=== PATIENT | male | born 1960 | race Caucasian/White ===

== ENCOUNTER 2017-04-01 19:30 | Inpatient (IN) | payer OTHER, MEDICAID ==
[2017-04-01] MEDS: DILTIAZEM 25 MG INJ IV (23:32)
[2017-04-01] MEDS: DILTIAZEM-D5W 125MG/125ML DRIP 125 ML IV (23:33)
[2017-04-01 23:48] LABS: ADD MAN DIFF? NO
[2017-04-01 23:55] LABS: BASOPHIL # 0.1 10^3/ul (0.0-0.1); BASOPHILS % 1.2 % (0.0-2.0); EOSINOPHILS # 0.4 10^3/ul (0.0-0.5); EOSINOPHILS % 4.4 % (0.0-7.0); HEMATOCRIT 41.7 % (42.0-52.0); HEMOGLOBIN 14.3 g/dl (14.0-18.0); LYMPHOCYTES # 3.2 10^3/ul (0.8-2.9); LYMPHOCYTES % 31.9 % (15.0-51.0); MEAN CORPUSCULAR HGB CONC 34.3 g/dl (32.0-37.0); MEAN CORPUSCULAR VOLUME 90.3 fl (82.0-101.0); MEAN PLATELET VOLUME 10.5 fl (7.4-10.4); MONOCYTE # 1.2 10^3/ul (0.3-0.9); MONOCYTES % 11.4 % (0.0-11.0); NEUTROPHIL # 5.1 10^3/ul (1.6-7.5); NEUTROPHILS % 50.7 % (39.0-77.0); PLATELET COUNT 235 10^3/UL (140-415); RED BLOOD COUNT 4.62 10^6/ul (4.70-6.10); RED CELL DISTRIBUTION WIDTH 13.3 % (11.5-14.5)
[2017-04-01 23:55] LABS: WHITE BLOOD COUNT 10.1 10^3/ul (4.8-10.8)
[2017-04-02 00:11] LABS: ANION GAP 18 (8-16); BLOOD UREA NITROGEN 18 mg/dl (7-20); CALCIUM 9.7 mg/dl (8.4-10.2); CARBON DIOXIDE 26 mmol/L (21-31); CHLORIDE 107 mmol/L (97-110); CREATININE 1.01 mg/dl (0.61-1.24); GLUCOSE 127 mg/dl (70-220); SODIUM 147 mmol/L (135-144)
[2017-04-02 00:24] LABS: TROPONIN-I < 0.012 ng/ml (0.00-0.12)
[2017-04-02] MEDS ORDERED: ONDANSETRON 4 MG INJ IV (01:00)
[2017-04-02] MEDS ORDERED: ACETAMINOPHEN 325 MG TAB PO ×2 (01:00→01:30)
[2017-04-02] MEDS ORDERED: ONDANSETRON 4 MG TAB PO (01:30)
[2017-04-02] MEDS ORDERED: BISACODYL (EC) 5 MG TAB PO (01:30)
[2017-04-02] MEDS ORDERED: morphine 2 MG INJ IV (01:30)
[2017-04-02] MEDS ORDERED: DOCUSATE SODIUM 100 MG CAP PO (01:30)
[2017-04-02] MEDS ORDERED: NACL 0.9% 3 ML SYG IV (01:30)
[2017-04-02] MEDS: DILTIAZEM-D5W 125MG/125ML DRIP 125 ML IV (02:37)
[2017-04-02 02:47] LABS: FREE T4 (FREE THYROXINE) 0.86 ng/dl (0.64-1.79)
[2017-04-02] MEDS: ENOXAPARIN 100 MG/ML SYG SC ×2 (02:58→11:59)
[2017-04-02 06:53] LABS: ADD MAN DIFF? NO
[2017-04-02 06:55] LABS: BASOPHIL # 0.1 10^3/ul (0.0-0.1); BASOPHILS % 1.2 % (0.0-2.0); EOSINOPHILS # 0.5 10^3/ul (0.0-0.5); EOSINOPHILS % 5.1 % (0.0-7.0); HEMATOCRIT 44.3 % (42.0-52.0); LYMPHOCYTES # 2.8 10^3/ul (0.8-2.9); LYMPHOCYTES % 30.4 % (15.0-51.0); MEAN CORPUSCULAR HEMOGLOBIN 30.9 pg (29.0-33.0); MEAN CORPUSCULAR HGB CONC 33.9 g/dl (32.0-37.0); MEAN CORPUSCULAR VOLUME 91.2 fl (82.0-101.0); MEAN PLATELET VOLUME 10.7 fl (7.4-10.4); MONOCYTES % 10.8 % (0.0-11.0); NEUTROPHIL # 4.9 10^3/ul (1.6-7.5); NEUTROPHILS % 52.1 % (39.0-77.0); PLATELET COUNT 246 10^3/UL (140-415); RED BLOOD COUNT 4.86 10^6/ul (4.70-6.10); RED CELL DISTRIBUTION WIDTH 13.4 % (11.5-14.5)
[2017-04-02 06:55] LABS: WHITE BLOOD COUNT 9.3 10^3/ul (4.8-10.8)
[2017-04-02 07:24] LABS: CK INDEX 3.6; CREATINE KINASE 101 IU/L (23-200)
[2017-04-02 07:26] LABS: ALANINE AMINOTRANSFERASE 43 IU/L (13-69); ALBUMIN 3.9 g/dl (3.3-4.9); ALBUMIN/GLOBULIN RATIO 1.39; ALKALINE PHOSPHATASE 60 IU/L (42-121); ANION GAP 18 (8-16); ASPARTATE AMINO TRANSFERASE 29 IU/L (15-46); BILIRUBIN,INDIRECT 0.4 mg/dl (0-1.1); BILIRUBIN,TOTAL 0.4 mg/dl (0.2-1.3); BLOOD UREA NITROGEN 15 mg/dl (7-20); CALCIUM 9.5 mg/dl (8.4-10.2); CARBON DIOXIDE 24 mmol/L (21-31); CHLORIDE 108 mmol/L (97-110); CHOL/HDL RATIO 2.4 RATIO; CHOLESTEROL 127 mg/dl (100-200); CREATININE 0.97 mg/dl (0.61-1.24); GLUCOSE 145 mg/dl (70-220); HDL CHOLESTEROL 52 mg/dl (28-71); LDL CHOLESTEROL,CALCULATED 58 mg/dl; MAGNESIUM 1.6 mg/dl (1.7-2.5); POTASSIUM 4.1 mmol/L (3.5-5.1); SODIUM 146 mmol/L (135-144); TOTAL PROTEIN 6.7 g/dl (6.1-8.1); TRIGLYCERIDES 83 mg/dl (0-149)
[2017-04-02 07:27] LABS: CK-MB 3.64 ng/ml (0.0-2.4); TROPONIN-I < 0.012 ng/ml (0.00-0.12)
[2017-04-02 08:01] LABS: HEMOGLOBIN A1C 5.7 % (0-5.9)
[2017-04-02] MEDS ORDERED: EMTRICITABINE/TENOFOV ALAFENAM 1 EACH TABLET PO ×2 (09:00→10:42)
[2017-04-02] MEDS: DOLUTEGRAVIR SODIUM 50 MG TABLET PO (09:33)
[2017-04-02] MEDS: BACLOFEN 10 MG TAB PO (09:33)
[2017-04-02] MEDS: ASPIRIN (EC) 325 MG TAB PO (09:33)
[2017-04-02] MEDS: EMTRICITABINE/TENOFOV ALAFENAM 1 EACH TABLET PO (11:56)
[2017-04-02] MEDS: MAGNESIUM SULFATE 2 GM/50 ML 50 ML IVPB (14:57)
[2017-04-02] MEDS ORDERED: ATORVASTATIN 80 MG TAB PO (21:00)
[2017-04-03 11:37] LABS: LYMPHOCYTE - % CD4 (HELPER) 36 % (30-61); LYMPHOCYTE - %CD8 (SUPPRESSOR) 23 % (12-42); LYMPHOCYTE - ABSOLUTE 2915 cells/uL (850-3900); LYMPHOCYTE - ABSOLUTE CD4 1040 cells/uL (490-1740); LYMPHOCYTE - ABSOLUTE CD8 685 cells/uL (180-1170); LYMPHOCYTE - CD4/CD8 RATIO 1.52 (0.86-5.00)
== END 2017-04-02 16:51 | disposition home or self-care (01) | DRG 308 ==
LOC: TEL 04-02 00:36 → E/R 19:30
DX: I48.91 Unspecified atrial fibrillation (principal); B20 Human immunodeficiency virus [HIV] disease; I10 Essential (primary) hypertension; E78.5 Hyperlipidemia, unspecified
CPT/HCPCS: 36415; 71010; 80048; 80053; 80061; 82550; 82553; 83036; 83735; 84439; 84443; 84484; 85025; 86360; 87536; 93005; 93306; 96374; 96375; 99291-25

== ENCOUNTER 2017-06-06 16:51 | Emergency (ER) | payer OTHER, MEDICAID ==
[2017-06-06] MEDS ORDERED: ADENOSINE 0 ML (17:10)
[2017-06-06] MEDS: DILTIAZEM 25 MG INJ IV (17:20)
[2017-06-06] MEDS: SOD CHLORIDE 0.9% 500 ML IV (17:21)
[2017-06-06] MEDS: MAGNESIUM SULFATE 2 GM/50 ML 50 ML IVPB (17:23)
[2017-06-06 17:39] LABS: ADD MAN DIFF? NO
[2017-06-06 17:42] LABS: BASOPHIL # 0.1 10^3/ul (0.0-0.1); BASOPHILS % 0.7 % (0.0-2.0); EOSINOPHILS # 0.3 10^3/ul (0.0-0.5); EOSINOPHILS % 2.4 % (0.0-7.0); HEMATOCRIT 39.5 % (42.0-52.0); HEMOGLOBIN 13.3 g/dl (14.0-18.0); LYMPHOCYTES # 3.2 10^3/ul (0.8-2.9); LYMPHOCYTES % 30.5 % (15.0-51.0); MEAN CORPUSCULAR HEMOGLOBIN 30.9 pg (29.0-33.0); MEAN CORPUSCULAR HGB CONC 33.7 g/dl (32.0-37.0); MEAN CORPUSCULAR VOLUME 91.9 fl (82.0-101.0); MEAN PLATELET VOLUME 9.9 fl (7.4-10.4); MONOCYTE # 1.3 10^3/ul (0.3-0.9); MONOCYTES % 12.6 % (0.0-11.0); NEUTROPHIL # 5.7 10^3/ul (1.6-7.5); NEUTROPHILS % 53.5 % (39.0-77.0); PLATELET COUNT 211 10^3/UL (140-415); RED CELL DISTRIBUTION WIDTH 13.1 % (11.5-14.5)
[2017-06-06 17:42] LABS: WHITE BLOOD COUNT 10.6 10^3/ul (4.8-10.8)
[2017-06-06] MEDS: ASPIRIN 81 MG TAB PO (17:52)
[2017-06-06] MEDS: DILTIAZEM-D5W 125MG/125ML DRIP 125 ML IV (17:57)
[2017-06-06 18:03] LABS: INR 1.01; PROTIME 13.4 Sec (11.9-14.9)
[2017-06-06 18:04] LABS: PARTIAL THROMBOPLASTIN TIME 29.1 Sec (25.0-35.0)
[2017-06-06 18:06] LABS: ANION GAP 20 (8-16); BLOOD UREA NITROGEN 22 mg/dl (7-20); CALCIUM 9.9 mg/dl (8.4-10.2); CARBON DIOXIDE 25 mmol/L (21-31); CHLORIDE 102 mmol/L (97-110); CREATININE 1.38 mg/dl (0.61-1.24); GLUCOSE 103 mg/dl (70-220); POTASSIUM 3.4 mmol/L (3.5-5.1); SODIUM 144 mmol/L (135-144)
[2017-06-06 18:17] LABS: TROPONIN-I < 0.012 ng/ml (0.00-0.12)
== END 2017-06-06 19:10 | disposition home or self-care (01) ==
LOC: E/R 16:51
DX: I48.91 Unspecified atrial fibrillation (principal); N28.9 Disorder of kidney and ureter, unspecified; I10 Essential (primary) hypertension; Z79.82 Long term (current) use of aspirin
CPT/HCPCS: 36415; 71045; 80048; 84484; 85025; 85610; 85730; 93005; 96374; 96375; 99285-25

== ENCOUNTER 2018-02-04 14:50 | Emergency (ER) | payer OTHER ==
[2018-02-04] MEDS: ONDANSETRON 4 MG INJ IV (16:27)
[2018-02-04] MEDS: HYDROmorphONE 1 MG/ML SYG IV (16:27)
== END 2018-02-04 19:32 | disposition home or self-care (01) ==
LOC: E/R 19:32 → FTE 14:50
DX: S46.002A Unspecified injury of muscle(s) and tendon(s) of the rotator cuff of left shoulder, initial encounter (principal); I10 Essential (primary) hypertension; J40 Bronchitis, not specified as acute or chronic; X58.XXXA Exposure to other specified factors, initial encounter; Y92.9 Unspecified place or not applicable; Z79.82 Long term (current) use of aspirin
CPT/HCPCS: 36415; 71045; 73030; 73200; 96374; 96375; 99285-25